=== PATIENT | male | born 1985 ===

== ENCOUNTER 2017-10-06 17:55 | Inpatient (IN) | payer OTHER ==
--- NOTE | 2017-10-06 18:39 | EDM.PDOC ---
ED HPI GENERAL MEDICAL PROBLEM - General Chief Complaint: Cardiovascular Problem Stated Complaint: IRREGULAR HEARTBEAT Time Seen by Provider: 10/06/17 18:25 Source of Information: Reports: Patient - History of Present Illness INITIAL COMMENTS - FREE TEXT/NARRATIVE: patient states he has had progressive symptoms of shortness of breath, chest pain, posterior headache and feeling weak for the last week and a half. He reports he has had feelings of irregular/fast HR, with an episode of fainting about a week ago. He also reports he has noticed blood in his stool for several months, but unable to quantify length of symptoms. He denies any abdominal pain , but reports a burning sensation internally. He denies any regular medication use, denies any drug use, however states he does use marijuana recreationally, as well as Adderral, and xanax. He states last use of adderall was about 2 days ago. He states he has also used OTC 'BC powder' and aleve for his headaches. Patient does report normal BM's, denies any urinary symptoms. He reports a history of seizure disorder, for which he was treated for 12 years ago, while living in [place]. He was non compliant with treatment, and states he has not had a seizure since that time. 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 He reports an isolated episode of fainting was about a week ago, unwitnessed while he was at home. Chest Pain Score (Numeric/FACES): 5 - Related Data Allergies Allergy/AdvReac Type Severity Reaction Status Date / Time lidocaine Allergy Other Verified 10/06/17 18:10 Home Meds: Home Meds . [No Known Home Meds] 10/06/17 [History] Social & Family History - Family History Family Medical History: Noncontributory - Tobacco Use Smoking Status *Q: Current Every Day Smoker Years of Tobacco use: 14 Packs/Tins Daily: 0.5 - Caffeine Use Caffeine Use: Reports: None - Recreational Drug Use Recreational Drug Use: Yes Recreational Drug Type: Reports: Marijuana/Hashish, Ritalin, Xanax ED ROS GENERAL - Review of Systems Review Of Systems: See Below Constitutional: Reports: Malaise, Weakness. Denies: Fever, Chills HEENT: Reports: Dental Pain (reports left upper tooth pain, not acute) Respiratory: Reports: Shortness of Breath. Denies: Wheezing, Cough, Hemoptysis (dyspnea on exertion) Cardiovascular: Reports: Chest Pain (reports a sensation of irregular heart beat /flutter, occurs mostly with activity. has progressively worsened over the course of the last 10 days. ) GI/Abdominal: Reports: Abdominal Pain (reports a burning sensation throughout abdomen, reports it has a feeling of 'heat'.), Bloody Stool. Denies: Constipation, Diarrhea, Decreased Appetite, Nausea, Vomiting : Denies: No Symptoms Musculoskeletal: Denies: No Symptoms Skin: Reports: Pallor, Diaphoresis Neurological: Reports: Headache (posterior occipital headache for the last 10 days, has tried OTC 'bc powder and aleve') Psychiatric: Reports: No Symptoms Hematologic/Lymphatic: Denies: Easy Bleeding, Easy Bruising ED EXAM, GENERAL - Physical Exam Exam: See Below Exam Limited By: No Limitations General Appearance: Alert, WD/WN, No Apparent Distress Eye Exam: Bilateral Eye: Other (conjunctivl pallor) Throat/Mouth: Normal Oropharynx, Other (poor dentition, but no evidence of abscess, gingival edema/erythema) Head: Atraumatic, Normocephalic Neck: Normal Inspection, Full Range of Motion Respiratory/Chest: Lungs Clear, Normal Breath Sounds Cardiovascular: Regular Rate, Rhythm, Systolic Murmur (grade II systolic murmur , LSB without radiation) GI/Abdominal: Normal Bowel Sounds, Non-Tender, No Distention. No: Hepatomegaly , Splenomegaly Rectal (Males) Exam: Normal Rectal Tone, Heme + Stool Extremities: Normal Inspection, Normal Range of Motion Neurological: Alert, Oriented, CN II-XII Intact, Normal Cognition Psychiatric: Normal Affect, Normal Mood Skin Exam: Warm, Dry, Intact, Pallor Course - Vital Signs Text/Narrative:: When patient was initially evaluated BP was 122/72, HR 100, O2 sat 100% on RA. 1930 CBC reviewed, WBC 47.74, RBC 1.7, Hg 3.3, Hct 12.6, MCV 74.1, MCH 19.4, PLT 173 Other labs pending. Occult done and was positive. Patient reporting posterior headache, requesting pain control. Tramadol 50mg PO ONETIME Also mentions his father recently about a month ago from an inflammatory condition which he is not entirely sure of, but thinks 'sarcoid'. He states his grandma also from similar condition. Dr An was consulted due to Hg, and while I was seeing another patient, he did place some additional lab orders. Type and Cross to be done for patients to receive 2U of PRBC. Troponin is elevated at 0.061. EKG shows sinus tachycardia, no LVH, incomplete RBBB. CXR does not appear to show any acute findings. Creatinine 0.9 BUN 12 ALT/AST within normal limits UA drug screen presumptively positive for methamphetamine, amphetamine, and THC. Iron low at 15 TIBC elevated at 486 Transferrin elevated at 389. Did discuss findings with patient, he had just completed 1U of PRBC, and does report an improvement in symptoms. I again discussed findings of drug screen and he denies known use of methamphetatmine. I did inquire about HIV, and he is agreeable to screening. I did then consult with Dr Estes, and discussed case and findings thus far with him. He is agreeable to see patient in consult (not immediately) for consideration of endoscopy & colonoscopy. I then consulted with Dr Zurita, who was agreeable to admission to telemetry/med surg. She did ask that a CIWA assessment be completed prior to admission. Last Recorded V/S: Last Vital Signs Temp 99.2 F 10/06/17 23:10 Pulse 93 10/06/17 23:10 Resp 18 10/06/17 23:10 BP 115/64 10/06/17 23:10 Pulse Ox 99 10/06/17 20:44 Orthostatic Blood Pressure [ 122/72 Standing] Orthostatic Blood Pressure [ 127/72 Sitting] Orthostatic Blood Pressure [ 141/74 Supine] - Orders/Labs/Meds Orders: Active Orders 24 hr Category Date Time Status EKG Documentation Completion [RC] STAT Care 10/06/17 18:10 Active Hemoccult [Fecal Occult Blood Collection] [RC] Care 10/06/17 22:58 Active ASDIRECTED CXR [Chest 2V] [CR] Stat Exams 10/06/17 18:41 Taken HIV RAPID SCREEN RLFX COMFIRM [CHEM] Stat Lab 10/06/17 19:57 Received PATIENT RETYPE [BBK] Stat Lab 10/06/17 18:44 Results RED BLOOD CELLS LP [BBK] Stat Lab 10/06/17 18:44 Results TYPE AND SCREEN [BBK] Stat Lab 10/06/17 18:44 Results WBC DIFFERENTIAL, MANUAL [REF] Stat Lab 10/06/17 18:44 Received Labs: Laboratory Tests 10/06/17 10/06/17 10/06/17 Range/Units 18:44 18:44 18:44 WBC 4.74 (4.23-9.07) K/mm3 RBC 1.70 L (4.63-6.08) M/mm3 Hgb 3.3 L* (13.7-17.5) gm/L Hct 12.6 L (40.1-51.0) % MCV 74.1 L (79.0-92.2) fl MCH 19.4 L (25.7-32.2) pg MCHC 26.2 L (32.2-35.5) g/dl RDW Std Deviation 46.4 H (35.1-43.9) fL Plt Count 173 (163-337) K/mm3 MPV 11.5 (9.4-12.3) fl Neutrophils % (Manual) 65 H (40-60) % Band Neutrophils % 0 (0-10) % Lymphocytes % (Manual) 27 (20-40) % Atypical Lymphs % 0 % Monocytes % (Manual) 5 (2-10) % Eosinophils % (Manual) 2 (0.8-7.0) % Basophils % (Manual) 1 (0.2-1.2) Platelet Estimate Adequate Plt Morphology Comment See note Hypochromasia 4+ Microcytosis 3+ marked RBC Morph Comment Not Reportable Percent Retic (0.51-1.81) % Sodium 139 (136-145) mEq/L Potassium 4.1 (3.5-5.1) mEq/L Chloride 105 (98-107) mEq/L Carbon Dioxide 24 (21-32) mEq/L Anion Gap 14.1 (5-15) BUN 12 (7-18) mg/dL Creatinine 0.9 (0.7-1.3) mg/dL Est Cr Clr Drug Dosing 126.66 mL/min Estimated GFR (MDRD) > 60 (>60) mL/min BUN/Creatinine Ratio 13.3 L (14-18) Glucose 110 H (74-106) mg/dL Calcium 8.6 (8.5-10.1) mg/dL Iron (65-175) ug/dL TIBC (100-400) ug/dL % Saturation (20-55) % Transferrin (202-364) mg/dL Ferritin (26-388) ng/ml Total Bilirubin 0.1 L (0.2-1.0) mg/dL AST 10 L (15-37) U/L ALT 16 (16-63) U/L Alkaline Phosphatase 67 (46-116) U/L Lactate Dehydrogenase (85-227) U/L Troponin I 0.061 H* (0.00-0.056) ng/mL C-Reactive Protein (<1.0) mg/dL Total Protein 7.3 (6.4-8.2) g/dl Albumin 3.3 L (3.4-5.0) g/dl Globulin 4.0 gm/dL Albumin/Globulin Ratio 0.8 L (1-2) Vitamin B12 (193-986) pg/ml Folate (8.6-58.9) ng/mL TSH 3rd Generation (0.358-3.74) uIU/mL Urine Color (Yellow) Urine Appearance (Clear) Urine pH (5.0-8.0) Ur Specific [place] (1.005-1.030) Urine Protein (Negative) Urine Glucose (UA) (Negative) Urine Ketones (Negative) Urine Occult Blood (Negative) Urine Nitrite (Negative) Urine Bilirubin (Negative) Urine Urobilinogen (0.2-1.0) Ur Leukocyte Esterase (Negative) Urine RBC (0-5) /hpf Urine WBC (0-5) /hpf Ur Epithelial Cells (0-5) /hpf Urine Bacteria (FEW) /hpf Urine Mucus (FEW) /hpf Urine Opiates Screen (NEGATIVE) Ur Buprenorphine Scrn (NEGATIVE) Ur Oxycodone Screen (NEGATIVE) Urine Methadone Screen (NEGATIVE) Ur Propoxyphene Screen (NEGATIVE) Ur Barbiturates Screen (NEGATIVE) Ur Tricyclics Screen (NEGATIVE) Ur Phencyclidine Scrn (NEGATIVE) Ur Amphetamine Screen (NEGATIVE) U Methamphetamines Scrn (NEGATIVE) U Benzodiazepines Scrn (NEGATIVE) U Cocaine Metab Screen (NEGATIVE) U Marijuana (THC) Screen (NEGATIVE) Slides for Path Review Yes Blood Type O POSITIVE Gel Antibody Screen Negative Crossmatch See Detail 10/06/17 10/06/17 10/06/17 Range/Units 18:44 18:44 19:57 WBC (4.23-9.07) K/mm3 RBC (4.63-6.08) M/mm3 Hgb (13.7-17.5) gm/L Hct (40.1-51.0) % MCV (79.0-92.2) fl MCH (25.7-32.2) pg MCHC (32.2-35.5) g/dl RDW Std Deviation (35.1-43.9) fL Plt Count (163-337) K/mm3 MPV (9.4-12.3) fl Neutrophils % (Manual) (40-60) % Band Neutrophils % (0-10) % Lymphocytes % (Manual) (20-40) % Atypical Lymphs % % Monocytes % (Manual) (2-10) % Eosinophils % (Manual) (0.8-7.0) % Basophils % (Manual) (0.2-1.2) Platelet Estimate Plt Morphology Comment Hypochromasia Microcytosis RBC Morph Comment Percent Retic 2.43 H (0.51-1.81) % Sodium (136-145) mEq/L Potassium (3.5-5.1) mEq/L Chloride (98-107) mEq/L Carbon Dioxide (21-32) mEq/L Anion Gap (5-15) BUN (7-18) mg/dL Creatinine (0.7-1.3) mg/dL Est Cr Clr Drug Dosing mL/min Estimated GFR (MDRD) (>60) mL/min BUN/Creatinine Ratio (14-18) Glucose (74-106) mg/dL Calcium (8.5-10.1) mg/dL Iron 15 L (65-175) ug/dL TIBC 486 H (100-400) ug/dL % Saturation 3 L (20-55) % Transferrin 389 H (202-364) mg/dL Ferritin 2 L (26-388) ng/ml Total Bilirubin (0.2-1.0) mg/dL AST (15-37) U/L ALT (16-63) U/L Alkaline Phosphatase (46-116) U/L Lactate Dehydrogenase 150 (85-227) U/L Troponin I (0.00-0.056) ng/mL C-Reactive Protein < 0.2 (<1.0) mg/dL Total Protein (6.4-8.2) g/dl Albumin (3.4-5.0) g/dl Globulin gm/dL Albumin/Globulin Ratio (1-2) Vitamin B12 684 (193-986) pg/ml Folate 16.3 (8.6-58.9) ng/mL TSH 3rd Generation 0.428 (0.358-3.74) uIU/mL Urine Color (Yellow) Urine Appearance (Clear) Urine pH (5.0-8.0) Ur Specific [place] (1.005-1.030) Urine Protein (Negative) Urine Glucose (UA) (Negative) Urine Ketones (Negative) Urine Occult Blood (Negative) Urine Nitrite (Negative) Urine Bilirubin (Negative) Urine Urobilinogen (0.2-1.0) Ur Leukocyte Esterase (Negative) Urine RBC (0-5) /hpf Urine WBC (0-5) /hpf Ur Epithelial Cells (0-5) /hpf Urine Bacteria (FEW) /hpf Urine Mucus (FEW) /hpf Urine Opiates Screen (NEGATIVE) Ur Buprenorphine Scrn (NEGATIVE) Ur Oxycodone Screen (NEGATIVE) Urine Methadone Screen (NEGATIVE) Ur Propoxyphene Screen (NEGATIVE) Ur Barbiturates Screen (NEGATIVE) Ur Tricyclics Screen (NEGATIVE) Ur Phencyclidine Scrn (NEGATIVE) Ur Amphetamine Screen (NEGATIVE) U Methamphetamines Scrn (NEGATIVE) U Benzodiazepines Scrn (NEGATIVE) U Cocaine Metab Screen (NEGATIVE) U Marijuana (THC) Screen (NEGATIVE) Slides for Path Review Blood Type Gel Antibody Screen Crossmatch 10/06/17 10/06/17 Range/Units 21:42 21:42 WBC (4.23-9.07) K/mm3 RBC (4.63-6.08) M/mm3 Hgb (13.7-17.5) gm/L Hct (40.1-51.0) % MCV (79.0-92.2) fl MCH (25.7-32.2) pg MCHC (32.2-35.5) g/dl RDW Std Deviation (35.1-43.9) fL Plt Count (163-337) K/mm3 MPV (9.4-12.3) fl Neutrophils % (Manual) (40-60) % Band Neutrophils % (0-10) % Lymphocytes % (Manual) (20-40) % Atypical Lymphs % % Monocytes % (Manual) (2-10) % Eosinophils % (Manual) (0.8-7.0) % Basophils % (Manual) (0.2-1.2) Platelet Estimate Plt Morphology Comment Hypochromasia Microcytosis RBC Morph Comment Percent Retic (0.51-1.81) % Sodium (136-145) mEq/L Potassium (3.5-5.1) mEq/L Chloride (98-107) mEq/L Carbon Dioxide (21-32) mEq/L Anion Gap (5-15) BUN (7-18) mg/dL Creatinine (0.7-1.3) mg/dL Est Cr Clr Drug Dosing mL/min Estimated GFR (MDRD) (>60) mL/min BUN/Creatinine Ratio (14-18) Glucose (74-106) mg/dL Calcium (8.5-10.1) mg/dL Iron (65-175) ug/dL TIBC (100-400) ug/dL % Saturation (20-55) % Transferrin (202-364) mg/dL Ferritin (26-388) ng/ml Total Bilirubin (0.2-1.0) mg/dL AST (15-37) U/L ALT (16-63) U/L Alkaline Phosphatase (46-116) U/L Lactate Dehydrogenase (85-227) U/L Troponin I (0.00-0.056) ng/mL C-Reactive Protein (<1.0) mg/dL Total Protein (6.4-8.2) g/dl Albumin (3.4-5.0) g/dl Globulin gm/dL Albumin/Globulin Ratio (1-2) Vitamin B12 (193-986) pg/ml Folate (8.6-58.9) ng/mL TSH 3rd Generation (0.358-3.74) uIU/mL Urine Color Light yellow (Yellow) Urine Appearance Clear (Clear) Urine pH 7.0 (5.0-8.0) Ur Specific [place] 1.020 (1.005-1.030) Urine Protein Negative (Negative) Urine Glucose (UA) Negative (Negative) Urine Ketones Negative (Negative) Urine Occult Blood Negative (Negative) Urine Nitrite Negative (Negative) Urine Bilirubin Negative (Negative) Urine Urobilinogen 0.2 (0.2-1.0) Ur Leukocyte Esterase Negative (Negative) Urine RBC 0-5 (0-5) /hpf Urine WBC 0-5 (0-5) /hpf Ur Epithelial Cells 0-5 (0-5) /hpf Urine Bacteria Rare (FEW) /hpf Urine Mucus Not seen (FEW) /hpf Urine Opiates Screen Negative (NEGATIVE) Ur Buprenorphine Scrn Negative (NEGATIVE) Ur Oxycodone Screen Negative (NEGATIVE) Urine Methadone Screen Negative (NEGATIVE) Ur Propoxyphene Screen Negative (NEGATIVE) Ur Barbiturates Screen Negative (NEGATIVE) Ur Tricyclics Screen Negative (NEGATIVE) Ur Phencyclidine Scrn Negative (NEGATIVE) Ur Amphetamine Screen Presumptive positive H (NEGATIVE) U Methamphetamines Scrn Presumptive positive H (NEGATIVE) U Benzodiazepines Scrn Negative (NEGATIVE) U Cocaine Metab Screen Negative (NEGATIVE) U Marijuana (THC) Screen Presumptive positive H (NEGATIVE) Slides for Path Review Blood Type Gel Antibody Screen Crossmatch Meds: Medications Discontinued Medications Generic Name Dose Route Start Last Admin Trade Name Freq PRN Reason Stop Dose Admin Acetaminophen 650 mg 10/06/17 21:17 10/06/17 21:23 Tylenol PO 10/06/17 21:18 650 mg ONETIME ONE Administration Sodium Chloride 500 mls @ 999 mls/hr 10/06/17 18:42 10/06/17 18:57 Normal Saline IV 10/06/17 19:12 999 mls/hr .BOLUS ONE Administration Tramadol HCl 50 mg 10/06/17 19:45 10/06/17 20:06 Ultram PO 10/06/17 19:46 50 mg ONETIME ONE Administration Departure - Departure Time of Disposition: 23:33 Disposition: Admitted As Inpatient 67 Condition: Fair Clinical Impression: Iron deficiency anemia Referrals: PCP,None [Primary Care Provider] - Forms: ED Department Discharge - My Orders Last 24 Hours: My Active Orders 10/06/17 18:10 EKG Documentation Completion [RC] STAT 10/06/17 18:41 CXR [Chest 2V] [CR] Stat 10/06/17 18:44 PATIENT RETYPE [BBK] Stat RED BLOOD CELLS LP [BBK] Stat TYPE AND SCREEN [BBK] Stat WBC DIFFERENTIAL, MANUAL [REF] Stat 10/06/17 19:57 HIV RAPID SCREEN RLFX COMFIRM [CHEM] Stat 10/06/17 22:58 Hemoccult [Fecal Occult Blood Collection] [RC] ASDIRECTED - Assessment/Plan Last 24 Hours: My Active Orders 10/06/17 18:10 EKG Documentation Completion [RC] STAT 10/06/17 18:41 CXR [Chest 2V] [CR] Stat 10/06/17 18:44 PATIENT RETYPE [BBK] Stat RED BLOOD CELLS LP [BBK] Stat TYPE AND SCREEN [BBK] Stat WBC DIFFERENTIAL, MANUAL [REF] Stat 10/06/17 19:57 HIV RAPID SCREEN RLFX COMFIRM [CHEM] Stat 10/06/17 22:58 Hemoccult [Fecal Occult Blood Collection] [RC] ASDIRECTED
[2017-10-06] MEDS ORDERED: Sodium Chloride 0.9% 500 ML IV ONE (18:42)
[2017-10-06] MEDS ORDERED: traMADol 50 MG Tab PO ONE (19:45)
[2017-10-06] MEDS ORDERED: Acetaminophen Soln 650 MG/20.3 ML UD Cup PO ONE (21:17)
[2017-10-07] MEDS ORDERED: Furosemide 20 MG/2 ML VIAL ONE (01:02)
[2017-10-07] MEDS ORDERED: Furosemide 20 MG/2 ML VIAL IVPUSH ONE ×3 (01:03→18:00)
[2017-10-07] MEDS ORDERED: LORazepam 2 MG/ML SDV IVPUSH PRN (03:23)
--- NOTE | 2017-10-07 08:07 | CR ---
Chest: Two views of the chest were obtained. Comparison: No prior study. Heart size and mediastinum are normal. Lungs are clear. Bony structures are unremarkable. Impression: 1. Nothing acute is identified on two-view chest x-ray. Diagnostic code #1
[2017-10-07] MEDS ORDERED: Ondansetron 4 MG/2 ML SDV IVPUSH PRN (08:12)
[2017-10-07] MEDS ORDERED: Ondansetron 4 MG/2 ML SDV ONE (08:15)
[2017-10-07] MEDS ORDERED: Bisacodyl 5 MG Tab PO ONE (08:59)
[2017-10-07] MEDS ORDERED: Magnesium Citrate Solution 296 ML Bottle PO ONE (09:00)
[2017-10-07] MEDS ORDERED: Pantoprazole 40 MG Vial IVPUSH SCH (09:00)
--- NOTE | 2017-10-07 09:05 | PCM.CONS ---
H&P History of Present Illness - General Date of Service: 10/07/17 Admit Problem/Dx: Admission Diagnosis/Problem Admission Diagnosis/Problem Anemia Source of Information: Patient - History of Present Illness Initial Comments - Free Text/Narative: 32-year-old male has had epigastric burning for several months along with a frontal headache.. Over the past couple of weeks he has experienced lightheadedness palpitations and passing out along with extreme weakness and fatigue. He's had significant difficulty walking up flights of stairs because of shortness of breath and weakness. For his headaches he's been taking aspirin and Aleve several times a day. He denied alcohol abuse. His stools have been black intermittently. He presented to the emergency room last night and was found to have a hemoglobin of 3. He was admitted and given 4 units of red blood cells and feels much better this morning. I was asked to see him for diagnostic panendoscopy. Chest Pain Score (Numeric/FACES): 5 - Related Data Allergies/Adverse Reactions: Allergies Allergy/AdvReac Type Severity Reaction Status Date / Time lidocaine Allergy Other Verified 10/06/17 18:10 Home Medications: Home Meds . [No Known Home Meds] 10/06/17 [History] Past Medical History - Infectious Disease History Infectious Disease History: Reports: Chicken Pox, Mononucleosis Other Infectious Disease History: mono-10 Social & Family History - Family History Family Medical History: Noncontributory - Tobacco Use Smoking Status *Q: Current Every Day Smoker Years of Tobacco use: 15 Packs/Tins Daily: 0.5 Used Tobacco, but Quit: No Second Hand Smoke Exposure: No - Caffeine Use Caffeine Use: Reports: None - Alcohol Use Days Per Week of Alcohol Use: 2 Number of Drinks Per Day: 2 Total Drinks Per Week: 4 Date of Last Drink: 10/03/17 - Recreational Drug Use Recreational Drug Use: Yes Drug Use in Last 12 Months: Yes Recreational Drug Type: Reports: Marijuana/Hashish, Other (see below) Other Recreational Drug Type: took adderal- states meth was in the capsule Recreational Drug Use Frequency: Socially H&P Review of Systems - Review of Systems: Review Of Systems: ROS reveals no pertinent complaints other than HPI. Exam - Exam Exam: See Below - Vital Signs Vital Signs: Last Vital Signs Temp 37.2 C 10/07/17 05:13 Pulse 70 10/07/17 05:13 Resp 18 10/07/17 05:13 BP 118/68 10/07/17 05:13 Pulse Ox 100 10/07/17 05:13 Weight: 84.277 kg - Exam General: Alert, Oriented, Cooperative HEENT: EOMI, Hearing Intact Neck: Supple, Trachea Midline Lungs: Clear to Auscultation, Normal Respiratory Effort Cardiovascular: Regular Rate, Regular Rhythm, Normal S1, Normal S2 GI/Abdominal Exam: Soft, Non-Tender (Male) Exam: Deferred Rectal (Males) Exam: Deferred Back Exam: Full Range of Motion Extremities: Normal Inspection Skin: Warm, Dry, Intact Neuro Extensive - Mental Status: Alert, Oriented x3, Normal Mood/Affect, Normal Cognition Psychiatric: Alert, Normal Affect, Normal Mood - Patient Data Result Diagrams: 10/06/17 18:44 10/06/17 18:44 Consult PN Assessment/Plan (1) Chronic blood loss anemia SNOMED Code(s): 141434048 Code(s): D50.0 - IRON DEFICIENCY ANEMIA SECONDARY TO BLOOD LOSS (CHRONIC) Priority: High Current Visit: Yes Assessment:: Probable upper GI source and needs panendoscopy. (2) Iron deficiency anemia SNOMED Code(s): 27981973 Code(s): D50.9 - IRON DEFICIENCY ANEMIA, UNSPECIFIED Current Visit: Yes Problem List Initiated/Reviewed/Updated: Yes My Orders Last 24 Hours: My Active Orders 10/07/17 08:58 Patient to Empty Bladder [RC] ASDIRECTED Verify Patient Consent Obtain [RC] ASDIRECTED 10/07/17 08:59 Bisacodyl [Dulcolax] 30 mg PO ONETIME ONE 10/07/17 09:00 Magnesium Citrate [Citrate of Magnesia] See Dose Instructions PO ONETIME ONE Plan: Diagnostic esophagogastroduodenoscopy and colonoscopy. Bowel prep this morning to be followed by his procedure this afternoon. The benefits and risks as well as the alternatives were explained to the patient and he wants to proceed without reservation.
--- NOTE | 2017-10-07 09:30 | PCM.HP ---
H&P History of Present Illness - General Date of Service: 10/07/17 Source of Information: Patient, Provider History Limitations: Reports: No Limitations - History of Present Illness Initial Comments - Free Text/Narative: 32 year old male with several week long history of lightheadedness, more recently he had a syncopal episode that was unwitnessed. He has had [place], palpitations/fluttering sensation. He also has complained of a posterior headache and has taken NSAID/ASA frequently with a change in stool. It has been black to fran blood per his description. He has been presyncopal when walking up stairs. In the ED, he has received his first unit of PRBCs. He will receive a total of 4 units, the overall goal, HgB>9.0. General surgery has been consulted, he will have an EGD and colonoscopy on 10/07/17. Onset of Symptoms: Reports: Gradual Duration of Symptoms: Reports: Week(s): Location: Reports: Generalized Quality: Reports: Same as Previous Episode Severity: Moderate Improves with: Reports: Medication Worsens with: Reports: None Associated Symptoms: Reports: Shortness of Breath, Weakness Chest Pain Score (Numeric/FACES): 5 - Related Data Allergies/Adverse Reactions: Allergies Allergy/AdvReac Type Severity Reaction Status Date / Time lidocaine Allergy Other Verified 10/06/17 18:10 Home Medications: Home Meds . [No Known Home Meds] 10/06/17 [History] Past Medical History - Infectious Disease History Infectious Disease History: Reports: Chicken Pox, Mononucleosis Other Infectious Disease History: mono-10 Social & Family History - Family History Family Medical History: Noncontributory - Tobacco Use Smoking Status *Q: Current Every Day Smoker Years of Tobacco use: 15 Packs/Tins Daily: 0.5 Used Tobacco, but Quit: No Second Hand Smoke Exposure: No - Caffeine Use Caffeine Use: Reports: None - Alcohol Use Days Per Week of Alcohol Use: 2 Number of Drinks Per Day: 2 Total Drinks Per Week: 4 Date of Last Drink: 10/03/17 - Recreational Drug Use Recreational Drug Use: Yes Drug Use in Last 12 Months: Yes Recreational Drug Type: Reports: Marijuana/Hashish, Other (see below) Other Recreational Drug Type: took adderal- states meth was in the capsule Recreational Drug Use Frequency: Socially H&P Review of Systems - Review of Systems: Review Of Systems: See Below General: Reports: Malaise, Weakness, Fatigue HEENT: Reports: No Symptoms Pulmonary: Reports: Shortness of Breath Cardiovascular: Reports: Palpitations, Dyspnea on Exertion, Lightheadedness Gastrointestinal: Reports: Black Stool Genitourinary: Reports: No Symptoms Musculoskeletal: Reports: No Symptoms Skin: Reports: No Symptoms Psychiatric: Reports: No Symptoms Neurological: Reports: No Symptoms Hematologic/Lymphatic: Reports: No Symptoms Immunologic: Reports: No Symptoms Exam - Exam Exam: See Below - Vital Signs Vital Signs: Last Vital Signs Temp 37.2 C 10/07/17 05:13 Pulse 70 10/07/17 05:13 Resp 18 10/07/17 05:13 BP 118/68 10/07/17 05:13 Pulse Ox 100 10/07/17 05:13 Weight: 84.277 kg - Exam Quality Assessment: Supplemental Oxygen, DVT Prophylaxis General: Alert, Oriented, Cooperative HEENT: Conjunctiva Clear, EOMI, Nares Patent, Normal Nasal Septum, Pupils Equal , Pupils Reactive, PERRLA Neck: Trachea Midline Lungs: Normal Respiratory Effort Cardiovascular: Regular Rate, Regular Rhythm GI/Abdominal Exam: Normal Bowel Sounds, Soft, Non-Tender, No Organomegaly, No Distention (Male) Exam: Deferred Rectal (Males) Exam: Deferred Back Exam: Normal Inspection Extremities: Normal Inspection, Normal Capillary Refill Skin: Warm Neurological: Cranial Nerves Intact Neuro Extensive - Mental Status: Alert, Oriented x3, Normal Mood/Affect, Normal Cognition Neuro Extensive - Motor, Sensory, Reflexes: CN II-XII Intact Psychiatric: Alert, Normal Affect, Normal Mood - Patient Data Result Diagrams: 10/07/17 09:55 10/07/17 09:55 *Q Meaningful Use (ADM) - VTE *Q VTE Criteria *Q: - Stroke *Q Stroke Criteria *Q: - AMI *Q AMI Criteria *Q: - Problem List (1) Pre-syncope SNOMED Code(s): 441414300 ICD Code: R55 - SYNCOPE AND COLLAPSE Status: Acute Current Visit: Yes Problem List Initiated/Reviewed/Updated: Yes Orders Last 24hrs: Active Orders 24 hr Category Date Time Status Patient Status [ADT] Routine ADT 10/07/17 00:43 Active CIWAA Assessment [RC] Q4HR Care 10/07/17 03:22 Active Notify Provider Consults [RC] ASDIRECTED Care 10/07/17 03:21 Active Oxygen Therapy Adult [Oxygen Therapy] [RC] ASDIRECTED Care 10/07/17 00:30 Active Patient to Empty Bladder [RC] ASDIRECTED Care 10/07/17 08:58 Active Verify Patient Consent Obtain [RC] ASDIRECTED Care 10/07/17 08:58 Active Consult to Physician [CONS] Routine Cons 10/07/17 03:19 Active Consult to [place] [facility] [CONS] Routine Cons 10/07/17 08:21 Active NPO [Nothing Per Oral Diet] [DIET] Diet 10/07/17 Breakfast Active BASIC METABOLIC PANEL,BMP [CHEM] Routine Lab 10/07/17 10:00 Ordered CBC WITH AUTO DIFF [HEME] Routine Lab 10/07/17 10:00 Ordered MAGNESIUM [CHEM] Routine Lab 10/07/17 10:00 Ordered Acetaminophen [Tylenol] Med 10/07/17 03:22 Active 650 mg PO Q6H PRN LORazepam [Ativan] Med 10/07/17 03:23 Active 1 mg IVPUSH Q4H PRN Ondansetron [Zofran] Med 10/07/17 08:12 Active 4 mg IVPUSH Q6H PRN Pantoprazole [ProTONIX IV] Med 10/07/17 09:00 Active 20 mg IVPUSH BID Transfuse PRBC [Transfuse Red Blood Cells] [COMM] Oth 10/07/17 01:01 Ordered Routine Resuscitation Status Routine Resus Stat 10/07/17 03:25 Ordered Medication Orders Acetaminophen (Tylenol) 650 mg PO Q6H PRN PRN Reason: Pain Lorazepam (Ativan) 1 mg IVPUSH Q4H PRN PRN Reason: Anxiety Ondansetron HCl (Zofran) 4 mg IVPUSH Q6H PRN PRN Reason: Nausea Pantoprazole Sodium (Protonix Iv) 20 mg IVPUSH BID [facility] Last Admin: 10/07/17 08:24 Dose: 20 mg Assessment/Plan Comment:: Impression: Probable UGI bleed Iron deficiency anemia Recreational drug use Query depression ie, precipitated by bereavement Posterior headache, unspecified Demand ischemia Plan: PRBCs for HgB > 9.0 Gen surg consult re: panendoscopy H pylori Daily labs Sarcoid screen
--- NOTE | 2017-10-07 14:38 | PCM.OPNOTE ---
- General Post-Op/Procedure Note Date of Surgery/Procedure: 10/07/17 Operative Procedure(s): Esophagogastroduodenoscopy with antral biopsy 2 Findings: Multiple superficial antral erosions with some erosions containing exudate in their bases. There was mild erythema diffusely throughout the antrum and there was mild edema of the pylorus. There was mild duodenitis and a superficial ulcer located at the junction of the first and second parts of the duodenum posteriorly. There are no large ulcers present and there were no visible vessels. The stomach and duodenum contained no luminal blood. There were no varices, tears, vascular, or mass lesions. Pre Op Diagnosis: Chronic blood loss anemia with melena Post-Op Diagnosis: 1. Duodenal ulcer posteriorly. 2. Duodenitis. 3. Antritis Anesthesia Technique: MAC, Moderate Sedation Primary Surgeon: Suleiman Estes Pathology: Antral biopsy 2 of the antral erosions EBL in mLs: 0 Complications: None Condition: Good Free Text/Narrative:: Intake & Output 10/06/17 10/07/17 10/07/17 22:59 06:59 14:59 Intake Total 770 360 Output Total 1500 Balance -730 360 After adequate IV sedation and analgesia was obtained with monitoring the patient was placed on his left side. Through a bite-block lubricated upper endoscope was inserted easily into the esophagus and advanced under direct vision to the stomach. Additional air was given here for insufflation. The lesions described above were seen throughout the antrum. The pylorus was identified. On entry there were areas of erythema consistent with mild duodenitis. At the first and second portions of the duodenum there was a shallow duodenal ulcer with exudate at its base. The second part of the duodenum distally was unremarkable. There was no luminal blood in the stomach or the duodenum. The scope was then withdrawn to the incisure angularis and from this location I took biopsies of the antral erosions. In the retroflexed view the fundic region was grossly normal. There was no hiatal hernia varices or Caridad-Patton tears. The rugal folds were grossly normal. There was no endoscopic gastritis. The scope was then withdrawn to the GE junction which was sharp and had no pathology endoscopically. The body of esophagus was unremarkable. The vocal cords were briefly visualized on extubation and appeared to be normal grossly. Air was removed as I finished the procedure which he tolerated well. Linen Controller photographs were taken for the patient and for the medical record. There were no procedural complications.
[2017-10-07] MEDS ORDERED: Sodium Chloride 0.9% 10 ML Syringe FLUSH PRN (14:43)
[2017-10-07] MEDS ORDERED: Iopamidol 612 MG/ML 50 ML SDV IVPUSH ONE (14:43)
--- NOTE | 2017-10-07 14:44 | PCM48HPAN ---
Post Anesthesia Note - EVALUATION WITHIN 48HRS OF ANESTHETIC Vital Signs in Normal Range: Yes Patient Participated in Evaluation: Yes Respiratory Function Stable: Yes Airway Patent: Yes Cardiovascular Function Stable: Yes Hydration Status Stable: Yes Pain Control Satisfactory: Yes Nausea and Vomiting Control Satisfactory: Yes Mental Status Recovered: Yes
[2017-10-07] MEDS ORDERED: Sodium Chloride 0.9% 250 ML IV SCH (15:15)
[2017-10-07] MEDS ORDERED: Pantoprazole 40 MG Vial IVPUSH ONE (15:19)
[2017-10-07] MEDS: Acetaminophen 325 MG Tab PO PRN (15:21)
--- NOTE | 2017-10-07 15:29 | CT ---
Head CT (without and with intravenous contrast) Technique: Multiple axial sections through the brain were obtained without and with intravenous contrast. Comparison: No previous intracranial imaging. Findings: Ventricles along with basal cisterns and sulci over the convexities are within normal limits for the patient's age. No abnormal parenchymal densities are seen. No evidence of intracranial hemorrhage. No midline shift or mass effect. No areas of abnormal enhancement are seen. Bone window settings were reviewed which show the visualized sinuses to appear clear. No acute calvarial abnormality is seen. Impression: 1. No abnormality is identified on head CT study performed without and with intravenous contrast. Diagnostic code #1
[2017-10-07] MEDS: Pantoprazole 40 MG Vial IVPUSH SCH (20:44)
[2017-10-08] MEDS ORDERED: Potassium Chloride 10 MEQ Tab.ER PO SCH (09:30)
[2017-10-08] MEDS: Potassium Chloride 20 MEQ Tab.ER PO SCH ×2 (09:52→21:16)
[2017-10-08] MEDS: Pantoprazole 40 MG Vial IVPUSH SCH (09:52)
--- NOTE | 2017-10-08 12:23 | PCM.PN ---
- General Info Date of Service: 10/08/17 Functional Status: Reports: Pain Controlled, Tolerating Diet, Ambulating, Urinating - Review of Systems General: Reports: No Symptoms HEENT: Reports: No Symptoms Pulmonary: Reports: No Symptoms Cardiovascular: Reports: No Symptoms Gastrointestinal: Reports: No Symptoms Genitourinary: Reports: No Symptoms Musculoskeletal: Reports: No Symptoms Skin: Reports: No Symptoms Neurological: Reports: No Symptoms Psychiatric: Reports: No Symptoms - Patient Data Vitals - Most Recent: Last Vital Signs Temp 36.6 C 10/08/17 11:22 Pulse 85 10/08/17 11:22 Resp 17 10/08/17 11:22 BP 110/46 L 10/08/17 11:22 Pulse Ox 97 10/08/17 11:22 Weight - Most Recent: 84.277 kg I&O - Last 24 Hours: Intake & Output 10/07/17 10/08/17 10/08/17 22:59 06:59 14:59 Intake Total 380 930 Output Total 720 650 Balance -340 280 Lab Results Last 24 Hours: Laboratory Results - last 24 hr 10/08/17 10/08/17 Range/Units 05:40 05:40 WBC 8.14 (4.23-9.07) K/mm3 RBC 4.08 L (4.63-6.08) M/mm3 Hgb 10.4 L (13.7-17.5) gm/L Hct 32.1 L (40.1-51.0) % MCV 78.7 L (79.0-92.2) fl MCH 25.5 L (25.7-32.2) pg MCHC 32.4 (32.2-35.5) g/dl RDW Std Deviation 49.5 H (35.1-43.9) fL Plt Count 201 (163-337) K/mm3 MPV 12.0 (9.4-12.3) fl Neut % (Auto) 71.1 H (34.0-67.9) % Lymph % (Auto) 17.3 L (21.8-53.1) % Davis % (Auto) 8.7 (5.3-12.2) % Eos % (Auto) 2.3 (0.8-7.0) Baso % (Auto) 0.4 (0.1-1.2) % Neut # (Auto) 5.78 H (1.78-5.38) K/mm3 Lymph # (Auto) 1.41 (1.32-3.57) K/mm3 Davis # (Auto) 0.71 (0.30-0.82) K/mm3 Eos # (Auto) 0.19 (0.04-0.54) K/mm3 Baso # (Auto) 0.03 (0.01-0.08) K/mm3 Sodium 141 (136-145) mEq/L Potassium 3.4 L (3.5-5.1) mEq/L Chloride 103 (98-107) mEq/L Carbon Dioxide 26 (21-32) mEq/L Anion Gap 15.4 H (5-15) BUN 13 (7-18) mg/dL Creatinine 0.8 (0.7-1.3) mg/dL Est Cr Clr Drug Dosing 142.49 mL/min Estimated GFR (MDRD) > 60 (>60) mL/min BUN/Creatinine Ratio 16.3 (14-18) Glucose 89 (74-106) mg/dL Calcium 8.9 (8.5-10.1) mg/dL Magnesium 2.2 (1.8-2.4) mg/dl C-Reactive Protein < 0.2 (<1.0) mg/dL [place] Results Last 24 Hours: Microbiology 10/07/17 21:10 Helicobacter pylori Antigen - Final Stool / Feces NEGATIVE H. PYLORI AG Med Orders - Current: Current Medications Acetaminophen (Tylenol) 650 mg PO Q6H PRN PRN Reason: Pain Last Admin: 10/07/17 15:21 Dose: 650 mg Sodium Chloride (Normal Saline) 250 mls @ 100 mls/hr IV ASDIRECTED COUNTS INCLUDE 234 BEDS AT THE [facility] Lorazepam (Ativan) 1 mg IVPUSH Q4H PRN PRN Reason: Anxiety Last Admin: 10/07/17 15:25 Dose: 1 mg Ondansetron HCl (Zofran) 4 mg IVPUSH Q6H PRN PRN Reason: Nausea Pantoprazole Sodium (Protonix Iv) 40 mg IVPUSH BID COUNTS INCLUDE 234 BEDS AT THE [facility] Last Admin: 10/08/17 09:52 Dose: 40 mg Potassium Chloride (Klor-Con M20) 60 meq PO BID COUNTS INCLUDE 234 BEDS AT THE [facility] Stop: 10/09/17 21:01 Last Admin: 10/08/17 09:52 Dose: 60 meq Sodium Chloride (Saline Flush) 10 ml FLUSH ONETIME PRN PRN Reason: IV FLUSH Last Admin: 10/07/17 14:57 Dose: 10 ml Discontinued Medications Acetaminophen (Tylenol) 650 mg PO ONETIME ONE Stop: 10/06/17 21:18 Last Admin: 10/06/17 21:23 Dose: 650 mg Bisacodyl (Dulcolax) 30 mg PO ONETIME ONE Stop: 10/07/17 09:00 Last Admin: 10/07/17 09:49 Dose: 30 mg Furosemide (Lasix) 20 mg IVPUSH ONETIME ONE Stop: 10/07/17 01:04 Last Admin: 10/07/17 01:15 Dose: 20 mg Furosemide (Lasix) Confirm Administered Dose 20 mg .ROUTE .STK-MED ONE Stop: 10/07/17 01:03 Last Admin: 10/07/17 01:21 Dose: Not Given Furosemide (Lasix) 20 mg IVPUSH ONETIME ONE Stop: 10/07/17 07:04 Last Admin: 10/07/17 08:24 Dose: 20 mg Furosemide (Lasix) 20 mg IVPUSH ONETIME ONE Stop: 10/07/17 18:01 Last Admin: 10/07/17 21:18 Dose: 20 mg Sodium Chloride (Normal Saline) 500 mls @ 999 mls/hr IV .BOLUS ONE Stop: 10/06/17 19:12 Last Admin: 10/06/17 18:57 Dose: 999 mls/hr Iopamidol (Isovue-300 (61%)) 50 ml IVPUSH ONETIME ONE Stop: 10/07/17 14:44 Last Admin: 10/07/17 14:57 Dose: 50 ml Magnesium Citrate (Citrate Of Magnesia) 296 ml PO ONETIME ONE Stop: 10/07/17 09:01 Last Admin: 10/07/17 09:50 Dose: 296 ml Ondansetron HCl (Zofran) Confirm Administered Dose 4 mg .ROUTE .STK-MED ONE Stop: 10/07/17 08:16 Last Admin: 10/07/17 08:24 Dose: 4 mg Pantoprazole Sodium (Protonix Iv) 20 mg IVPUSH BID [facility]EP[facility] Last Admin: 10/07/17 08:24 Dose: 20 mg Pantoprazole Sodium (Protonix Iv) 40 mg IVPUSH ONETIME ONE Stop: 10/07/17 15:20 Last Admin: 10/07/17 15:33 Dose: 40 mg Potassium Chloride (Klor-Con 10) 60 meq PO BID [facility]EP[facility] Stop: 10/09/17 21:01 Last Admin: 10/08/17 11:07 Dose: Not Given Tramadol HCl (Ultram) 50 mg PO ONETIME ONE Stop: 10/06/17 19:46 Last Admin: 10/06/17 20:06 Dose: 50 mg - Exam Quality Assessment: DVT Prophylaxis General: Alert, Oriented, Cooperative, No Acute Distress HEENT: Pupils Equal, Pupils Reactive, EOMI Neck: Trachea Midline, No JVD Lungs: Normal Respiratory Effort Cardiovascular: Regular Rate, Regular Rhythm GI/Abdominal Exam: Normal Bowel Sounds, Soft, Non-Tender, No Organomegaly, No Distention (Male) Exam: Deferred Back Exam: Normal Inspection Extremities: Normal Inspection, Normal Range of Motion, Normal Capillary Refill Skin: Warm Neurological: No New Focal Deficit, Normal Gait, Normal Speech Psy/Mental Status: Alert, Normal Affect, Normal Mood Physical Findings Comments:: EGD RESULTS: Multiple superficial antral erosions with some erosions containing exudate in their bases. There was mild erythema diffusely throughout the antrum and there was mild edema of the pylorus. There was mild duodenitis and a superficial ulcer located at the junction of the first and second parts of the duodenum posteriorly. There are no large ulcers present and there were no visible vessels. The stomach and duodenum contained no luminal blood. There were no varices, tears, vascular, or mass lesions. - Problem List & Annotations (1) Pre-syncope SNOMED Code(s): 789789462 Code(s): R55 - SYNCOPE AND COLLAPSE Status: Acute Current Visit: Yes (2) Duodenitis with bleeding SNOMED Code(s): 31780186 Code(s): K29.81 - DUODENITIS WITH BLEEDING Status: Acute Current Visit: Yes - Problem List Review Problem List Initiated/Reviewed/Updated: Yes - My Orders Last 24 Hours: My Active Orders 10/07/17 12:30 H PYLORI BREATH TEST, ADULT [REF] Routine 10/07/17 13:59 Transfuse PRBC [Transfuse Red Blood Cells] [COMM] Routine 10/07/17 14:43 Sodium Chloride 0.9% [Saline Flush] 10 ml FLUSH ONETIME PRN 10/07/17 15:15 Sodium Chloride 0.9% [Normal Saline] 250 ml IV ASDIRECTED 10/07/17 21:00 Pantoprazole [ProTONIX IV] 40 mg IVPUSH BID 10/07/17 22:46 Transfuse RBC [Transfuse Red Blood Cells] [COMM] Routine 10/08/17 09:43 Potassium Chloride [Klor-Con M20] 60 meq PO BID 10/08/17 12:30 Clarithromycin [Biaxin] 500 mg PO BID 10/08/17 16:00 Pantoprazole [ProTONIX] 40 mg PO BIDAC 10/08/17 21:00 Amoxicillin [Amoxil] 1,000 mg PO Q12HR 10/08/17 Lunch Soft Diet [DIET] 10/09/17 05:00 BASIC METABOLIC PANEL,BMP [CHEM] DAILY CBC WITH AUTO DIFF [HEME] DAILY MAGNESIUM [CHEM] DAILY 10/10/17 05:00 BASIC METABOLIC PANEL,BMP [CHEM] DAILY MAGNESIUM [CHEM] DAILY - Plan Plan:: Impression: UGI bleed--duodenitis with superficial ulcer Iron deficiency anemia Recreational drug use Query depression ie, precipitated by bereavement Posterior headache, unspecified, s/p CT of head--negative for pathology. Demand ischemia--resolved Plan: PRBCs for HgB > 9.0--->10.0 achieved, stable Gen surg consult re: panendoscopy--changed to EGD only after duodenal ulcer identified H pylori--negative documeted today, therefore will start PPI without ATB Daily labs Sarcoid screen as outpatient Minimal risk for DVT DC 10/09/17, monitor H/H as diet is advanced. May return to work w/o restrictions; avoid ASA/NSAIDS
--- NOTE | 2017-10-08 16:11 | PCM.DCSUM1 ---
Discharge Summary - Hospital Course Free Text/Narrative:: 32 year old male with several week long history of lightheadedness, more recently he had a syncopal episode that was unwitnessed. He has had [place], palpitations/fluttering sensation. He also has complained of a posterior headache and has taken NSAID/ASA frequently with a change in stool. It has been black to fran blood per his description. He has been presyncopal when walking up stairs. In the ED, he has received his first unit of PRBCs. He will receive a total of 4 units, the overall goal, HgB>9.0. General surgery has been consulted, he will have an EGD and colonoscopy on 10/07/17. EGD RESULTS: Multiple superficial antral erosions with some erosions containing exudate in their bases. There was mild erythema diffusely throughout the antrum and there was mild edema of the pylorus. There was mild duodenitis and a superficial ulcer located at the junction of the first and second parts of the duodenum posteriorly. There are no large ulcers present and there were no visible vessels. The stomach and duodenum contained no luminal blood. There were no varices, tears, vascular, or mass lesions. - Discharge Data Discharge Date: 10/09/17 Discharge Disposition: Home, Self-Care 01 Condition: Good - Discharge Diagnosis/Problem(s) (1) Pre-syncope SNOMED Code(s): 557423588 ICD Code: R55 - SYNCOPE AND COLLAPSE Status: Acute (2) Duodenitis with bleeding SNOMED Code(s): 36547301 ICD Code: K29.81 - DUODENITIS WITH BLEEDING Status: Acute - Patient Summary/Data Operative Procedure(s) Performed: Esophagogastroduodenoscopy with antral biopsy 2 Consults: Consultations 10/07/17 03:19 Consult to Physician [CONS] Routine 10/07/17 08:21 Consult to Life Teacher [CONS] Routine - Patient Instructions Diet: Usual Diet as Tolerated Activity: As Tolerated Driving: May Drive Today Showering/Bathing: May Shower Notify Provider of: Increased Pain, Nausea and/or Vomiting - Discharge Plan Prescriptions/Med Rec: Omeprazole 20 mg PO BIDAC #60 cap.sr Home Medications: Home Meds Omeprazole 20 mg PO BIDAC #60 cap.sr 10/09/17 [Rx] Patient Handouts: Smoking Cessation, Tips for Success, [id number], Alcohol Use Disorder, Chemical Dependency, Finding Treatment for Addiction Referrals: PCP,None [Primary Care Provider] - - Discharge Summary/Plan Comment DC Time >30 min.: No Discharge Summary/Plan Comment: Impression: UGI bleed--duodenitis with superficial ulcer; PRECIPITATED BY ASA AND NSAIDS NOT H PYLORI Iron deficiency anemia Recreational drug use Query depression ie, precipitated by bereavement Posterior headache, unspecified, s/p CT of head--negative for pathology. Demand ischemia--resolved Plan: PRBCs for HgB > 9.0--->10.0 achieved, stable Gen surg consult re: panendoscopy--changed to EGD only after duodenal ulcer identified H pylori--negative documeted today, therefore will start PPI without ATB Daily labs Sarcoid screen as outpatient Minimal risk for DVT DC 10/09/17, monitor H/H as diet is advanced. May return to work w/o restrictions; avoid ASA/NSAIDS - General Info Date of Service: 10/06/17 Functional Status: Reports: Pain Controlled, Tolerating Diet, Ambulating, Urinating - Review of Systems General: Reports: No Symptoms HEENT: Reports: No Symptoms Pulmonary: Reports: No Symptoms Cardiovascular: Reports: No Symptoms Gastrointestinal: Reports: No Symptoms Genitourinary: Reports: No Symptoms Musculoskeletal: Reports: No Symptoms Skin: Reports: No Symptoms Neurological: Reports: No Symptoms Psychiatric: Reports: No Symptoms - Patient Data Vitals - Most Recent: Last Vital Signs Temp 37.6 C 10/08/17 15:13 Pulse 84 10/08/17 15:13 Resp 19 10/08/17 15:13 BP 119/73 10/08/17 15:13 Pulse Ox 100 10/08/17 15:13 Weight - Most Recent: 84.277 kg I&O - Last 24 hours: Intake & Output 10/08/17 10/08/17 10/08/17 06:59 14:59 22:59 Intake Total 930 400 Output Total 650 Balance 280 400 Lab Results - Last 24 hrs: Laboratory Results - last 24 hr 10/08/17 10/08/17 Range/Units 05:40 05:40 WBC 8.14 (4.23-9.07) K/mm3 RBC 4.08 L (4.63-6.08) M/mm3 Hgb 10.4 L (13.7-17.5) gm/L Hct 32.1 L (40.1-51.0) % MCV 78.7 L (79.0-92.2) fl MCH 25.5 L (25.7-32.2) pg MCHC 32.4 (32.2-35.5) g/dl RDW Std Deviation 49.5 H (35.1-43.9) fL Plt Count 201 (163-337) K/mm3 MPV 12.0 (9.4-12.3) fl Neut % (Auto) 71.1 H (34.0-67.9) % Lymph % (Auto) 17.3 L (21.8-53.1) % [place] % (Auto) 8.7 (5.3-12.2) % Eos % (Auto) 2.3 (0.8-7.0) Baso % (Auto) 0.4 (0.1-1.2) % Neut # (Auto) 5.78 H (1.78-5.38) K/mm3 Lymph # (Auto) 1.41 (1.32-3.57) K/mm3 [place] # (Auto) 0.71 (0.30-0.82) K/mm3 Eos # (Auto) 0.19 (0.04-0.54) K/mm3 Baso # (Auto) 0.03 (0.01-0.08) K/mm3 Sodium 141 (136-145) mEq/L Potassium 3.4 L (3.5-5.1) mEq/L Chloride 103 (98-107) mEq/L Carbon Dioxide 26 (21-32) mEq/L Anion Gap 15.4 H (5-15) BUN 13 (7-18) mg/dL Creatinine 0.8 (0.7-1.3) mg/dL Est Cr Clr Drug Dosing 142.49 mL/min Estimated GFR (MDRD) > 60 (>60) mL/min BUN/Creatinine Ratio 16.3 (14-18) Glucose 89 (74-106) mg/dL Calcium 8.9 (8.5-10.1) mg/dL Magnesium 2.2 (1.8-2.4) mg/dl C-Reactive Protein < 0.2 (<1.0) mg/dL IRVING Results - Last 24 hrs: Microbiology 10/07/17 21:10 Helicobacter pylori Antigen - Final Stool / Feces NEGATIVE H. PYLORI AG Med Orders - Current: Current Medications Acetaminophen (Tylenol) 650 mg PO Q6H PRN PRN Reason: Pain Last Admin: 10/07/17 15:21 Dose: 650 mg Sodium Chloride (Normal Saline) 250 mls @ 100 mls/hr IV ASDIRECTED STEPAN Lorazepam (Ativan) 1 mg IVPUSH Q4H PRN PRN Reason: Anxiety Last Admin: 10/07/17 15:25 Dose: 1 mg Ondansetron HCl (Zofran) 4 mg IVPUSH Q6H PRN PRN Reason: Nausea Pantoprazole Sodium (Protonix) 40 mg PO BIDAC STEPAN Potassium Chloride (Klor-Con M20) 60 meq PO BID STEPAN Stop: 10/09/17 21:01 Last Admin: 10/08/17 09:52 Dose: 60 meq Sodium Chloride (Saline Flush) 10 ml FLUSH ONETIME PRN PRN Reason: IV FLUSH Last Admin: 10/07/17 14:57 Dose: 10 ml Discontinued Medications Acetaminophen (Tylenol) 650 mg PO ONETIME ONE Stop: 10/06/17 21:18 Last Admin: 10/06/17 21:23 Dose: 650 mg Amoxicillin (Amoxil) 1,000 mg PO Q12HR STEPAN Bisacodyl (Dulcolax) 30 mg PO ONETIME ONE Stop: 10/07/17 09:00 Last Admin: 10/07/17 09:49 Dose: 30 mg Clarithromycin (Biaxin) 500 mg PO BID [facility] Furosemide (Lasix) 20 mg IVPUSH ONETIME ONE Stop: 10/07/17 01:04 Last Admin: 10/07/17 01:15 Dose: 20 mg Furosemide (Lasix) Confirm Administered Dose 20 mg .ROUTE .STK-MED ONE Stop: 10/07/17 01:03 Last Admin: 10/07/17 01:21 Dose: Not Given Furosemide (Lasix) 20 mg IVPUSH ONETIME ONE Stop: 10/07/17 07:04 Last Admin: 10/07/17 08:24 Dose: 20 mg Furosemide (Lasix) 20 mg IVPUSH ONETIME ONE Stop: 10/07/17 18:01 Last Admin: 10/07/17 21:18 Dose: 20 mg Sodium Chloride (Normal Saline) 500 mls @ 999 mls/hr IV .BOLUS ONE Stop: 10/06/17 19:12 Last Admin: 10/06/17 18:57 Dose: 999 mls/hr Iopamidol (Isovue-300 (61%)) 50 ml IVPUSH ONETIME ONE Stop: 10/07/17 14:44 Last Admin: 10/07/17 14:57 Dose: 50 ml Magnesium Citrate (Citrate Of Magnesia) 296 ml PO ONETIME ONE Stop: 10/07/17 09:01 Last Admin: 10/07/17 09:50 Dose: 296 ml Ondansetron HCl (Zofran) Confirm Administered Dose 4 mg .ROUTE .STK-MED ONE Stop: 10/07/17 08:16 Last Admin: 10/07/17 08:24 Dose: 4 mg Pantoprazole Sodium (Protonix Iv) 20 mg IVPUSH BID [facility] Last Admin: 10/07/17 08:24 Dose: 20 mg Pantoprazole Sodium (Protonix Iv) 40 mg IVPUSH ONETIME ONE Stop: 10/07/17 15:20 Last Admin: 10/07/17 15:33 Dose: 40 mg Pantoprazole Sodium (Protonix Iv) 40 mg IVPUSH BID [facility] Last Admin: 10/08/17 09:52 Dose: 40 mg Potassium Chloride (Klor-Con 10) 60 meq PO BID [facility] Stop: 10/09/17 21:01 Last Admin: 10/08/17 11:07 Dose: Not Given Tramadol HCl (Ultram) 50 mg PO ONETIME ONE Stop: 10/06/17 19:46 Last Admin: 10/06/17 20:06 Dose: 50 mg - Exam Quality Assessment: Reports: DVT Prophylaxis General: Reports: Alert, Oriented, Cooperative, No Acute Distress HEENT: Reports: Pupils Equal, Pupils Reactive, EOMI Neck: Reports: Supple, Trachea Midline, No JVD Lungs: Reports: Clear to Auscultation, Normal Respiratory Effort Cardiovascular: Reports: Regular Rate, Regular Rhythm GI/Abdominal Exam: Normal Bowel Sounds, Soft, Non-Tender, No Organomegaly, No Distention (Male) Exam: Deferred Rectal (Males) Exam: Deferred Extremities: Normal Inspection, Normal Capillary Refill Skin: Reports: Warm Neurological: Reports: No New Focal Deficit Psy/Mental Status: Reports: Alert, Normal Affect, Normal Mood *Q Meaningful Use (DIS) - VTE *Q VTE Criteria *Q: - Stroke *Q Stroke Criteria *Q: - AMI *Q AMI Criteria *Q:
[2017-10-08] MEDS: Pantoprazole 40 MG Tab.CR PO SCH (16:27)
[2017-10-08] MEDS: Acetaminophen 325 MG Tab PO PRN (16:37)
[2017-10-08] MEDS ORDERED: Amoxicillin 500 MG Cap PO SCH (21:00)
[2017-10-09] MEDS: Pantoprazole 40 MG Tab.CR PO SCH (05:46)
[2017-10-09] MEDS: Potassium Chloride 20 MEQ Tab.ER PO SCH (08:28)
== END 2017-10-09 11:30 | disposition home or self-care (01) | DRG 379 ==
LOC: JD.ED 17:55 → JD.MS 23:26
PROVIDERS: ADMIT Internal Medicine Cardiovascular Disease; ATTEND Internal Medicine Cardiovascular Disease
PROC: 0DB68ZX Excision of Stomach, Via Natural or Artificial Opening Endoscopic, Diagnostic (ICD-10-PCS; principal; 2017-10-07)
DX: K29.81 Duodenitis with bleeding (principal); R55 Syncope and collapse; D50.0 Iron deficiency anemia secondary to blood loss (chronic); D50.9 Iron deficiency anemia, unspecified; R51 Headache; K26.9 Duodenal ulcer, unspecified as acute or chronic, without hemorrhage or perforation; J32.0 Chronic maxillary sinusitis; Z88.4 Allergy status to anesthetic agent; F15.90 Other stimulant use, unspecified, uncomplicated; F12.90 Cannabis use, unspecified, uncomplicated; F17.210 Nicotine dependence, cigarettes, uncomplicated
CPT/HCPCS: 00731; 36415; 36430; 70470; 70470-26; 71046; 71046-26; 80048; 80053; 80306; 81001; 82270; 82607; 82728; 82746; 83013; 83540; 83615; 83735; 84443; 84466; 84484; 85025; 85045; 86140; 86850; 86900; 86901; 86922; 87338; 93005; 93010; 96360; 99232; 99233; 99238; 99285; 99285-25; A9270-GY; C9113; G0433; G0480; J2060; J2405; J7040; J7050; P9016; Q9967

== ENCOUNTER 2017-11-30 11:02 | Day surgery (SDC) | payer SELFPAY ==
--- NOTE | 2017-10-07 10:36 | PCM.PREANE ---
Preanesthetic Assessment - Procedure Proposed Procedure: EGD - Anesthesia/Transfusion/Family Hx Anesthesia History: Prior Anesthesia Without Reaction Family History of Anesthesia Reaction: No Transfusion History: Prior Transfusion Without Reaction - Review of Systems General: Weakness, Fatigue, Malaise Pulmonary: No Symptoms Cardiovascular: Dyspnea on Exertion Gastrointestinal: Abdominal Pain, Flatus, Nausea Neurological: Seizure (2006 possible stress induced) Other: Reports: Depression, Anxiety - Physical Assessment NPO Status Date: 10/06/17 NPO Status Time: 00:00 Pulse: 64 O2 Sat by Pulse Oximetry: 100 Respiratory Rate: 16 Blood Pressure: 110/68 Temperature: 100.5 C Height: 1.8 m Weight: 88.587 kg ASA Class: 3 Mental Status: Alert & Oriented x3 Airway Class: Mallampati = 1 Dentition: Reports: Normal Dentition Thyro-Mental Finger Breadths: 3 Mouth Opening Finger Breadths: 3 ROM/Head Extension: Limited/Partial Lungs: Clear to Auscultation, Normal Respiratory Effort Cardiovascular: Regular Rate, Regular Rhythm, No Murmurs - Allergies Allergies/Adverse Reactions: Allergies Allergy/AdvReac Type Severity Reaction Status Date / Time lidocaine Allergy Other Verified 10/06/17 18:10 - Anesthesia Plan Pre-Op Medication Ordered: None - Acknowledgements Anesthesia Type Planned: MAC Pt an Appropriate Candidate for the Planned Anesthesia: Yes Alternatives and Risks of Anesthesia Discussed w Pt/Guardian: Yes Pt/Guardian Understands and Agrees with Anesthesia Plan: Yes PreAnesthesia Questionnaire - Infectious Disease History Infectious Disease History: Reports: Chicken Pox, Mononucleosis Other Infectious Disease History: mono-10 - SUBSTANCE USE Smoking Status *Q: Current Every Day Smoker Tobacco Use Within Last Twelve Months: Cigarettes Second Hand Smoke Exposure: No Days Per Week of Alcohol Use: 2 Number of Drinks Per Day: 2 Total Drinks Per Week: 4 Recreational Drug Use History: Yes Recreational Drug Type: Reports: Marijuana/Hashish, Other (see below) - HOME MEDS Home Medications: Home Meds . [No Known Home Meds] 10/06/17 [History]
[~2017-11-30 11:02] MED LIST: Lactated Ringers 1,000 ML IV SCH; Midazolam 1 MG/ML 2 ML SDV ONE; Propofol 200 MG/20 ML SDV ONE; Sodium Chloride 0.9% 10 ML Syringe FLUSH PRN
--- NOTE | 2017-11-30 12:36 | PCM.PREANE ---
<KarolBeau M - Last Filed: 11/30/17 12:29> Preanesthetic Assessment - Anesthesia/Transfusion/Family Hx Anesthesia History: Prior Anesthesia Without Reaction Family History of Anesthesia Reaction: No Transfusion History: Prior Transfusion Without Reaction - Review of Systems General: No Symptoms Pulmonary: Shortness of Breath (a month) Cardiovascular: No Symptoms Gastrointestinal: No Symptoms Neurological: Seizure (12 years ago) Other: Reports: Depression, Anxiety - Physical Assessment NPO Status Date: 11/30/17 NPO Status Time: 00:30 Pulse: 64 O2 Sat by Pulse Oximetry: 100 Respiratory Rate: 16 Blood Pressure: 110/68 Temperature: 100.5 C Vital Signs: Last Vital Signs Temp 100.5 C H 11/30/17 12:36 Pulse 64 11/30/17 12:36 Resp 16 11/30/17 12:36 BP 110/68 11/30/17 12:36 Pulse Ox 100 11/30/17 12:36 Height: 1.8 m Weight: 84.368 kg - Allergies Allergies/Adverse Reactions: Allergies Allergy/AdvReac Type Severity Reaction Status Date / Time lidocaine Allergy Other Verified 11/29/17 15:39 PreAnesthesia Questionnaire HEENT History: Reports: Impaired Vision Cardiovascular History: Reports: None Respiratory History: Reports: SOB Gastrointestinal History: Reports: Other (See Below) Other Gastrointestinal History: duodenal ulcer, GI bleed, stomach ulcer, antritis Genitourinary History: Reports: None LICENSED OPTICAL DISPENSER History: Reports: None Musculoskeletal History: Reports: None Neurological History: Reports: Migraines Psychiatric History: Reports: Addiction Endocrine/Metabolic History: Reports: None Hematologic History: Reports: Anemia Immunologic History: Reports: None Oncologic (Cancer) History: Reports: None Dermatologic History: Reports: None - Infectious Disease History Infectious Disease History: Reports: Chicken Pox, Mononucleosis Other Infectious Disease History: mono-10 - Past Surgical History Head Surgeries/Procedures: Reports: None HEENT Surgical History: Reports: None Cardiovascular Surgical History: Reports: None Respiratory Surgical History: Reports: None GI Surgical History: Reports: EGD Female Surgical History: Reports: None Male Surgical History: Reports: None Endocrine Surgical History: Reports: None Neurological Surgical History: Reports: None Musculoskeletal Surgical History: Reports: None Oncologic Surgical History: Reports: None Dermatological Surgical History: Reports: None - SUBSTANCE USE Smoking Status *Q: Current Every Day Smoker Tobacco Use Within Last Twelve Months: Cigarettes Second Hand Smoke Exposure: No Days Per Week of Alcohol Use: 2 Number of Drinks Per Day: 2 Total Drinks Per Week: 4 Recreational Drug Use History: Yes Recreational Drug Type: Reports: Marijuana/Hashish, Other (see below) - HOME MEDS Home Medications: Home Meds Omeprazole 20 mg PO BIDAC #60 cap.sr 10/09/17 [Rx] Cyclobenzaprine [Flexeril] 10 mg PO TID PRN 11/29/17 [History] - CURRENT (IN HOUSE) MEDS Current Meds: Current Medications Lactated Ringer's (Ringers, Lactated) 1,000 mls @ 125 mls/hr IV ASDIRECTED STEPAN Stop: 11/30/17 23:00 Last Admin: 11/30/17 11:30 Dose: 125 mls/hr Sodium Chloride (Saline Flush) 10 ml FLUSH ASDIRECTED PRN PRN Reason: Keep Vein Open Stop: 11/30/17 18:00 Discontinued Medications Midazolam HCl (Versed 1 Mg/Ml) Confirm Administered Dose 2 mg .ROUTE .STK-MED ONE Stop: 10/07/17 13:59 Propofol (Diprivan 20 Ml) Confirm Administered Dose 200 mg .ROUTE .STK-MED ONE Stop: 10/07/17 13:59 Propofol (Diprivan 20 Ml) Confirm Administered Dose 200 mg .ROUTE .STK-MED ONE Stop: 10/07/17 14:13 <Yuliana Carter - Last Filed: 11/30/17 12:54> Preanesthetic Assessment - Review of Systems General: Fatigue (Falls asleep easily when visiting with Abdulaziz. He is oriented x3. States he was up all night and is very tired. ) Neurological: Headache (Migraine) - Physical Assessment ASA Class: 2 Mental Status: Alert & Oriented x3 Airway Class: Mallampati = 2 Dentition: Reports: Broken Tooth/Teeth, Caries Thyro-Mental Finger Breadths: 3 Mouth Opening Finger Breadths: 3 ROM/Head Extension: Full Lungs: Clear to Auscultation, Normal Respiratory Effort Cardiovascular: Regular Rate, Regular Rhythm - Acknowledgements Anesthesia Type Planned: General Anesthesia Pt an Appropriate Candidate for the Planned Anesthesia: Yes Alternatives and Risks of Anesthesia Discussed w Pt/Guardian: Yes Pt/Guardian Understands and Agrees with Anesthesia Plan: Yes Additional Comments: Abdulaziz is extremely tired. He falls asleep easily while I am interviewing him today. He is oriented. Dr. Estes is aware. PreAnesthesia Questionnaire - SUBSTANCE USE Recreational Drug Type: Reports: Amphetamines (Speed) (3 days ago)
[2017-11-30] MEDS ORDERED: Lidocaine 1% 0 ML ONE (13:01)
[2017-11-30] MEDS ORDERED: Propofol 200 MG/20 ML SDV ONE (13:01)
--- NOTE | 2017-11-30 13:35 | PCM.OPNOTE ---
- General Post-Op/Procedure Note Date of Surgery/Procedure: 11/30/17 Operative Procedure(s): Diagnostic colonoscopy Findings: Normal endoscopic exam Pre Op Diagnosis: History of profound symptomatic anemia and duodenal ulcer Post-Op Diagnosis: Same Anesthesia Technique: MAC, Moderate Sedation Primary Surgeon: Suleiman Estes Pathology: None EBL in mLs: 0 Complications: None Condition: Good Free Text/Narrative:: After adequate IV sedation and analgesia was obtained with monitoring the patient was placed on his left side. Perianal inspection and digital rectal examination were performed next and were normal. A lubricated colonoscope was inserted in the rectum and advanced to the cecum without difficulty. The bowel preparation was excellent. The cecum ascending colon, transverse and descending colons were endoscopically normal with no mass lesions or inflammatory changes seen. The sigmoid and rectum were unremarkable as well. Mule Rider photographs were taken for the patient and for the medical record. There were no complications.
--- NOTE | 2017-11-30 13:42 | PCM48HPAN ---
Post Anesthesia Note - EVALUATION WITHIN 48HRS OF ANESTHETIC Vital Signs in Normal Range: Yes Patient Participated in Evaluation: Yes Respiratory Function Stable: Yes Airway Patent: Yes Cardiovascular Function Stable: Yes Hydration Status Stable: Yes Pain Control Satisfactory: Yes Nausea and Vomiting Control Satisfactory: Yes Pulse Rate: 80 SaO2: 98 Resp Rate: 12 Temperature: 36.4 C Blood Pressure: 98/46
== END 2017-11-30 14:55 | disposition home or self-care (01) ==
LOC: JD.SDS 11:02
PROVIDERS: ATTEND Surgery
DX: D64.9 Anemia, unspecified (principal); K92.2 Gastrointestinal hemorrhage, unspecified; K25.9 Gastric ulcer, unspecified as acute or chronic, without hemorrhage or perforation; G89.29 Other chronic pain; M54.5 Low back pain; F17.210 Nicotine dependence, cigarettes, uncomplicated; Z88.8 Allergy status to other drugs, medicaments and biological substances; Z79.899 Other long term (current) drug therapy
CPT/HCPCS: 45378; J2250; J7120; 00811; J2704

== ENCOUNTER 2018-04-24 10:11 | Day surgery (SDC) | payer OTHER ==
--- NOTE | 2018-04-17 07:43 | PCM.PREANE ---
Preanesthetic Assessment - Anesthesia/Transfusion/Family Hx Anesthesia History: Prior Anesthesia Without Reaction Family History of Anesthesia Reaction: No Transfusion History: Prior Transfusion Without Reaction Intubation History: Unknown - Review of Systems Pulmonary: No Symptoms (Current smoker: 16 pack yr history/history of substance abuse: last used) Cardiovascular: Dyspnea on Exertion Gastrointestinal: No Symptoms (GERD) Neurological: Headache (History of migraines), Seizure (seizure noted at age 20) Other: Reports: Depression, Anxiety - Physical Assessment NPO Status Date: 04/16/18 Mental Status: Alert & Oriented x3 - Lab Values: Lab values reviewed and noted and within acceptable ranges to proceed with scheduled procedure. (labs of 04/11/19) - Imaging/EKG Impressions: EKG: Sinus Tachycardia, Incomplete RBBB, No ischemic changes. (EKG of September 2017) - Allergies Allergies/Adverse Reactions: Allergies Allergy/AdvReac Type Severity Reaction Status Date / Time lidocaine Allergy Other Verified 11/29/17 15:39 - Anesthesia Plan Pre-Op Medication Ordered: None - Acknowledgements Anesthesia Type Planned: MAC Pt an Appropriate Candidate for the Planned Anesthesia: Yes Alternatives and Risks of Anesthesia Discussed w Pt/Guardian: Yes Pt/Guardian Understands and Agrees with Anesthesia Plan: Yes PreAnesthesia Questionnaire HEENT History: Reports: Impaired Vision Cardiovascular History: Reports: None Respiratory History: Reports: SOB Gastrointestinal History: Reports: Other (See Below) Other Gastrointestinal History: duodenal ulcer, GI bleed, stomach ulcer, antritis Genitourinary History: Reports: None 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 Musculoskeletal History: Reports: None Neurological History: Reports: Migraines Psychiatric History: Reports: Addiction Endocrine/Metabolic History: Reports: None Hematologic History: Reports: Anemia Immunologic History: Reports: None Oncologic (Cancer) History: Reports: None Dermatologic History: Reports: None - Infectious Disease History Infectious Disease History: Reports: Chicken Pox, Mononucleosis Other Infectious Disease History: mono-10 - Past Surgical History Head Surgeries/Procedures: Reports: None HEENT Surgical History: Reports: None Cardiovascular Surgical History: Reports: None Respiratory Surgical History: Reports: None GI Surgical History: Reports: EGD Female Surgical History: Reports: None Male Surgical History: Reports: None Endocrine Surgical History: Reports: None Neurological Surgical History: Reports: None Musculoskeletal Surgical History: Reports: None Oncologic Surgical History: Reports: None Dermatological Surgical History: Reports: None - HOME MEDS Home Medications: Home Meds Omeprazole 20 mg PO BIDAC #60 cap.sr 10/09/17 [Rx] Cyclobenzaprine [Flexeril] 10 mg PO TID PRN 11/29/17 [History] - CURRENT (IN HOUSE) MEDS Current Meds: Current Medications Lactated Ringer's (Ringers, Lactated) 1,000 mls @ 125 mls/hr IV ASDIRECTED STEPAN Stop: 04/17/18 23:00 Lidocaine/Sodium Bicarbonate (Buffered Lidocaine 1% In Ns 8.4%) 0.25 ml IDERM ONETIME PRN PRN Reason: Prior to IV Start Stop: 04/17/18 18:00 Sodium Chloride (Saline Flush) 10 ml FLUSH ASDIRECTED PRN PRN Reason: Keep Vein Open Stop: 04/17/18 18:00 Discontinued Medications Fentanyl (Sublimaze) Confirm Administered Dose 100 mcg .ROUTE .STK-MED ONE Stop: 04/17/18 07:22 Lidocaine HCl (Xylocaine-Mpf 1%) Confirm Administered Dose 4 mls @ as directed .ROUTE .STK-MED ONE Stop: 04/17/18 07:21 Propofol (Diprivan 20 Ml) Confirm Administered Dose 200 mg .ROUTE .STK-MED ONE Stop: 04/17/18 07:21
[~2018-04-24 10:11] MED LIST changes: +Lidocaine 1% 0 ML ONE; +Lidocaine 1%/Sod Bicarbonate in NS 8.4% 1 ML Syringe IDERM PRN; -Midazolam 1 MG/ML 2 ML SDV ONE; +fentaNYL 100 MCG/2 ML SDV ONE
--- NOTE | 2018-04-24 11:03 | PCM.PREANE ---
Preanesthetic Assessment - Procedure Proposed Procedure: Diagnostic EGD - Anesthesia/Transfusion/Family Hx Anesthesia History: Prior Anesthesia Without Reaction Family History of Anesthesia Reaction: No Transfusion History: Prior Transfusion Without Reaction Intubation History: Unknown - Review of Systems General: No Symptoms Pulmonary: Shortness of Breath (since September ) Cardiovascular: No Symptoms Gastrointestinal: No Symptoms Neurological: No Symptoms Other: Reports: Depression, Anxiety - Physical Assessment NPO Status Date: 04/23/18 NPO Status Time: 23:30 Pulse: 81 O2 Sat by Pulse Oximetry: 100 Respiratory Rate: 17 Blood Pressure: 120/80 Temperature: 36.7 C Height: 1.78 m Weight: 89.5 kg ASA Class: 2 Mental Status: Alert & Oriented x3 Airway Class: Mallampati = 2 Dentition: Reports: Normal Dentition Thyro-Mental Finger Breadths: 3 Mouth Opening Finger Breadths: 3 ROM/Head Extension: Full Lungs: Clear to Auscultation, Normal Respiratory Effort Cardiovascular: Regular Rate, Regular Rhythm - Lab Values: CBC and Chem panel pending - Allergies Allergies/Adverse Reactions: Allergies Allergy/AdvReac Type Severity Reaction Status Date / Time lidocaine Allergy Other Verified 11/29/17 15:39 - Blood Blood Available: No Product(s) Available: None - Anesthesia Plan Pre-Op Medication Ordered: None - Acknowledgements Anesthesia Type Planned: MAC Pt an Appropriate Candidate for the Planned Anesthesia: Yes Alternatives and Risks of Anesthesia Discussed w Pt/Guardian: Yes Pt/Guardian Understands and Agrees with Anesthesia Plan: Yes PreAnesthesia Questionnaire HEENT History: Reports: Other (See Below) Cardiovascular History: Reports: None Respiratory History: Reports: SOB Gastrointestinal History: Reports: GI Bleed Other Gastrointestinal History: ulcer Genitourinary History: Reports: None 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 Musculoskeletal History: Reports: None Neurological History: Reports: Migraines, Seizure Psychiatric History: Reports: Anxiety, Depression, Other (See Below) Other Psychiatric History: substance abuse disorder Endocrine/Metabolic History: Reports: None Hematologic History: Reports: Anemia Immunologic History: Reports: None Oncologic (Cancer) History: Reports: None Dermatologic History: Reports: None - Infectious Disease History Infectious Disease History: Reports: Chicken Pox, Mononucleosis Other Infectious Disease History: mono-10 - Past Surgical History Other HEENT Surgeries/Procedures: wears glasses GI Surgical History: Reports: Colonoscopy - SUBSTANCE USE Smoking Status *Q: Current Every Day Smoker (for 0.5ppd for 15 years) Tobacco Use Within Last Twelve Months: Cigarettes Second Hand Smoke Exposure: No Days Per Week of Alcohol Use: 7 Number of Drinks Per Day: 2 Total Drinks Per Week: 14 Recreational Drug Use History: Yes Recreational Drug Type: Reports: Marijuana/Hashish, Other (see below) (adderol on tuesday-) - HOME MEDS Home Medications: Home Meds Cyclobenzaprine [Flexeril] 10 mg PO TID PRN 11/29/17 [History] Calcium Carbonate [Tums] 500 mg PO 04/21/18 [History] Cholecalciferol (Vitamin D3) [Vitamin D3] 1 tab PO DAILY 04/21/18 [History] Pantoprazole Sodium [Protonix] 40 mg PO DAILY 04/21/18 [History] Ranitidine [Zantac] 150 mg PO 04/21/18 [History] - CURRENT (IN HOUSE) MEDS Current Meds: Current Medications Lactated Ringer's (Ringers, Lactated) 1,000 mls @ 125 mls/hr IV ASDIRECTED STEPAN Stop: 04/24/18 23:00 Lidocaine/Sodium Bicarbonate (Buffered Lidocaine 1% In Ns 8.4%) 0.25 ml IDERM ONETIME PRN PRN Reason: Prior to IV Start Sodium Chloride (Saline Flush) 10 ml FLUSH ASDIRECTED PRN PRN Reason: Keep Vein Open Stop: 04/24/18 18:00 Discontinued Medications Fentanyl (Sublimaze) Confirm Administered Dose 100 mcg .ROUTE .STK-MED ONE Stop: 04/17/18 07:22 Lactated Ringer's (Ringers, Lactated) 1,000 mls @ 125 mls/hr IV ASDIRECTED STEPAN Stop: 04/17/18 23:00 Lidocaine HCl (Xylocaine-Mpf 1%) Confirm Administered Dose 4 mls @ as directed .ROUTE .STK-MED ONE Stop: 04/17/18 07:21 Lidocaine/Sodium Bicarbonate (Buffered Lidocaine 1% In Ns 8.4%) 0.25 ml IDERM ONETIME PRN PRN Reason: Prior to IV Start Stop: 04/17/18 18:00 Propofol (Diprivan 20 Ml) Confirm Administered Dose 200 mg .ROUTE .STK-MED ONE Stop: 04/17/18 07:21 Sodium Chloride (Saline Flush) 10 ml FLUSH ASDIRECTED PRN PRN Reason: Keep Vein Open Stop: 04/17/18 18:00
[2018-04-24] MEDS ORDERED: Propofol 200 MG/20 ML SDV ONE ×2 (11:31→11:33)
--- NOTE | 2018-04-24 11:53 | PCM48HPAN ---
Post Anesthesia Note - EVALUATION WITHIN 48HRS OF ANESTHETIC Vital Signs in Normal Range: Yes Patient Participated in Evaluation: Yes Respiratory Function Stable: Yes Airway Patent: Yes Cardiovascular Function Stable: Yes Hydration Status Stable: Yes Pain Control Satisfactory: Yes Nausea and Vomiting Control Satisfactory: Yes Mental Status Recovered: Yes Pulse Rate: 89 SaO2: 97 Resp Rate: 14 Temperature: 98.7 F Blood Pressure: 110/65
--- NOTE | 2018-04-24 11:55 | PCM.OPNOTE ---
- General Post-Op/Procedure Note Date of Surgery/Procedure: 04/24/18 Operative Procedure(s): EGD with bx Pre Op Diagnosis: anemia with epigastric pain Post-Op Diagnosis: Same Anesthesia Technique: MAC Primary Surgeon: Daniel Rose EBL in mLs: 0 Complications: None Condition: Good
--- NOTE | 2018-04-25 06:43 | OR ---
DATE OF OPERATION: 04/24/2018 SURGEON: Daniel Rose MD PREOPERATIVE DIAGNOSIS: Anemia and epigastric pain. POSTOPERATIVE DIAGNOSIS: Anemia and epigastric pain. OPERATION PERFORMED: EGD with biopsy of the antrum. FINDINGS: Some edema in the antrum, of which biopsies was taken. Second portion of the duodenum, duodenal bulb, pyloric channel, body, cardia and fundus of the stomach were unremarkable. GE junction located at 40 cm, showed no acute disease. The balance of the esophagus was free of any pathology. ANESTHESIA: Done under IV sedation. DESCRIPTION OF PROCEDURE: The patient was taken to the endoscopy room, placed in a supine position, connected to monitoring equipment, given IV sedation, and placed in left lateral position. Bite block was inserted and video Olympus gastroscope placed in the posterior oropharynx. Under direct vision, it was threaded past the cricopharyngeus, down the esophagus, and into the stomach. The stomach was insufflated, and the scope passed through the pylorus to the second portion of the duodenum. Second portion of the duodenum, duodenal bulb, and pyloric channel were clearly seen and were free of any pathology. Antrum showed little edema, and this was biopsied. Body, cardia, and fundus of the stomach did not show any acute pathology. J-maneuver was performed. Scope was withdrawn to the GE junction, which was at 40 cm, Z-line was sharp and free of any inflammatory changes. Rest of the esophagus was noted as the scope was withdrawn, was normal. The patient tolerated the procedure, sent to recovery room in a stable condition, and will be followed up in the clinic as needed. ESTIMATED BLOOD LOSS: MMODAL /[id number]
== END 2018-04-24 12:58 | disposition home or self-care (01) ==
LOC: JD.SDS 10:11
PROVIDERS: ATTEND Surgery
DX: D64.9 Anemia, unspecified (principal); R10.13 Epigastric pain; K31.9 Disease of stomach and duodenum, unspecified; F17.210 Nicotine dependence, cigarettes, uncomplicated; K21.9 Gastro-esophageal reflux disease without esophagitis; F41.9 Anxiety disorder, unspecified; F32.9 Major depressive disorder, single episode, unspecified; Z79.899 Other long term (current) drug therapy; Z88.4 Allergy status to anesthetic agent
CPT/HCPCS: 36415; 43239; 80053; 85025; J2704; J7120; 00731; J2001; J3010